=== PATIENT | female | born 1930 | race Caucasian/White ===

== ENCOUNTER 2017-11-04 08:02 | Inpatient (IN) ==
[2017-11-04] MEDS ORDERED: SODIUM CHLORIDE 0.9% 500 ML IV STA (08:37)
[2017-11-04 09:17] LABS: Basophils % 0.5 % (0.0-0.8); Eosinophils # 0.2 10*3/uL (0.0-0.87); Eosinophils % 2.7 % (0.00-10.9); Hematocrit 35.2 VOL% (35.7-47.0); Hemoglobin 11.2 GM/DL (12.0-16.0); Immature Granulocytes % 0.5 %; Immature Granulocytes Absolute 0.03 #; Lymphocytes # 0.8 10*3/uL (1.4-4.0); Lymphocytes % 13.7 % (21.3-54.2); Mean Corpuscular HGB Conc 31.8 GM/DL (32-36); Mean Corpuscular Hemoglobin 29 PG (27-34); Mean Platelet Volume 10.3 FL (9.6-12.0); Monocytes # 0.5 10*3/uL (0.11-0.8); Neutrophils # 4.3 10*3/uL (1.4-7.4); Neutrophils % 73.6 % (38.7-73.9); Platelet Count 120 T/CUMM (130-400); Red Blood Count 3.91 MC/CUMM (3.8-5.5); Red Cell Distribution Width 16.8 % (9.3-17.3); White Blood Count 5.9 T/CUMM (4-12)
[2017-11-04 09:26] LABS: INR 1.4; PT Patient Result 14.6 SECS; Partial Thromboplastin Time 28.7 SECS (0-40)
[2017-11-04 09:54] LABS: Albumin 2.9 G/DL (3.4-5.0); Bilirubin,Total 0.6 MG/DL (0.2-1.0); Calcium 8.8 MG/DL (8.5-10.1); Potassium 4.3 MMOL/L (3.5-5.1); Total Protein 6.8 G/DL (6.4-8.3)
[2017-11-04] MEDS ORDERED: GLUCAGON 1 MG VIAL IM PRN (10:26)
[2017-11-04] MEDS ORDERED: BISACODYL 5 MG TABLET PO PRN (10:26)
[2017-11-04] MEDS ORDERED: DOCUSATE SODIUM 100 MG CAPSULE PO PRN (10:26)
[2017-11-04] MEDS ORDERED: DEXTROSE 50% 25 GM/50 ML VIAL IV PRN (10:26)
[2017-11-04] MEDS ORDERED: ONDANSETRON 4 MG/2 ML VIAL IV PRN (10:26)
[2017-11-04] MEDS ORDERED: diphenhydrAMINE CAP 25 MG CAPSULE PO PRN (10:28)
[2017-11-04] MEDS ORDERED: TRIAMCINOLONE 0.1% CREAM 15 GM TUBE TOP PRN (10:28)
[2017-11-04] MEDS: SODIUM CHLORIDE 0.45% 1,000 ML IV SCH (12:17)
[2017-11-04] MEDS: INSULIN LISPRO 100 UNIT/ML SUBCUT SCH ×3 (12:17→20:59)
[2017-11-04] MEDS ORDERED: ASPARTAME PO SCH (15:00)
[2017-11-04] MEDS ORDERED: PSYLLIUM HUSK PO SCH (15:00)
[2017-11-04] MEDS: OMEGA 3 ACID ETHYL ESTERS 1 GM CAPSULE PO SCH (20:57)
[2017-11-04] MEDS: ISOSORBIDE MONONITRATE 60 MG TABLET PO SCH (20:57)
[2017-11-04] MEDS: ACETAMINOPHEN 325 MG TABLET PO PRN (20:57)
[2017-11-04] MEDS: CALCIUM (CARBONATE) 600 MG TABLET PO SCH (20:58)
[2017-11-04] MEDS: CARVEDILOL 3.125 MG TABLET PO SCH (20:58)
[2017-11-04] MEDS: GABAPENTIN 300 MG CAPSULE PO SCH (20:59)
[2017-11-04] MEDS: ATORVASTATIN 10 MG TABLET PO SCH (20:59)
[2017-11-04] MEDS: METHOCARBAMOL 500 MG TABLET PO SCH (20:59)
[2017-11-04] MEDS: ENOXAPARIN 30 MG/0.3 ML SYRINGE SUBCUT SCH (20:59)
[2017-11-04] MEDS: ERYTHROMYCIN 0.5% OPHT OINT 3.5 GM TUBE BOTH EYES SCH (21:00)
[2017-11-04 22:26] LABS: Apearance,Urine CLEAR (Clear); Bilirubin,Urine Negative (Negative); Blood, Urine Negative (Negative); Glucose,Urine (UA) Negative (Negative); Ketones,Urine Negative (Negative); Nitrite,Urine Negative (Negative); Protein,Urine Negative; Renal Epithelial Cells,Urine Occasional /HPF (<1); Squamous Epithelial Cell,Urine Occasional /HPF (0-10); Urine Color Yellow (Yellow); Urine Specific Gravity 1.012 (1.001-1.035); Urine Urobilinogen < 2.0 EU/DL (0.2-1.0); WBC,Urine 1 /HPF (0-6)
[2017-11-05] MEDS: SODIUM CHLORIDE 0.45% 1,000 ML IV SCH ×2 (00:13→23:39)
[2017-11-05 07:10] LABS: Calcium 8.5 MG/DL (8.5-10.1); Osmolality,Calculated 280.4 MOS/KG (273-304)
[2017-11-05] MEDS ORDERED: Bifidobacterium Infantis [Align] 4 MG PO SCH (09:00)
[2017-11-05] MEDS ORDERED: PYRIDOXINE HCL PO SCH (09:00)
[2017-11-05] MEDS ORDERED: LEVOFLOXACIN 750 MG TABLET PO SCH (09:00)
[2017-11-05] MEDS ORDERED: Biotin [Biotin] 10,000 MCG PO SCH (09:00)
[2017-11-05] MEDS: CARVEDILOL 3.125 MG TABLET PO SCH ×2 (10:04→21:47)
[2017-11-05] MEDS: OMEGA 3 ACID ETHYL ESTERS 1 GM CAPSULE PO SCH ×2 (10:04→21:48)
[2017-11-05] MEDS: CHOLECALCIFEROL 1,000 UNIT TABLET PO SCH (10:04)
[2017-11-05] MEDS: FUROSEMIDE 40 MG TABLET PO SCH (10:04)
[2017-11-05] MEDS: metFORMIN 500 MG TABLET PO SCH (10:05)
[2017-11-05] MEDS: FERROUS SULFATE 325 MG TABLET PO SCH (10:05)
[2017-11-05] MEDS: CALCIUM (CARBONATE) 600 MG TABLET PO SCH ×2 (10:05→21:47)
[2017-11-05] MEDS: POLYETHYLENE GLYCOL POWDER 17 GM PACK PO SCH (10:06)
[2017-11-05] MEDS: ASPIRIN CHEW 81 MG TABLET PO SCH (10:06)
[2017-11-05] MEDS: PANTOPRAZOLE 40 MG TABLET PO SCH (10:06)
[2017-11-05] MEDS: INSULIN LISPRO 100 UNIT/ML SUBCUT SCH ×4 (10:06→21:47)
[2017-11-05] MEDS: CYANOCOBALAMIN 500 MCG TABLET PO SCH (10:07)
[2017-11-05] MEDS ORDERED: SKIN HEALING OINT (AQUAPHOR) 50 GM TUBE TOP PRN (13:39)
[2017-11-05] MEDS ORDERED: TUBERCULIN SKIN TEST 0.1 ML SYRINGE INTRADERM ONE (13:48)
[2017-11-05] MEDS: ENOXAPARIN 30 MG/0.3 ML SYRINGE SUBCUT SCH (21:48)
[2017-11-05] MEDS: ISOSORBIDE MONONITRATE 60 MG TABLET PO SCH (21:48)
[2017-11-05] MEDS: ATORVASTATIN 10 MG TABLET PO SCH (21:48)
[2017-11-05] MEDS: ERYTHROMYCIN 0.5% OPHT OINT 3.5 GM TUBE BOTH EYES SCH (21:48)
[2017-11-05] MEDS: METHOCARBAMOL 500 MG TABLET PO SCH (21:50)
[2017-11-05] MEDS: GABAPENTIN 300 MG CAPSULE PO SCH (21:50)
[2017-11-06] MEDS: SODIUM CHLORIDE 0.45% 1,000 ML IV SCH ×2 (04:39→22:51)
[2017-11-06] MEDS: INSULIN LISPRO 100 UNIT/ML SUBCUT SCH ×4 (08:12→22:47)
[2017-11-06] MEDS: metFORMIN 500 MG TABLET PO SCH (09:34)
[2017-11-06] MEDS: CYANOCOBALAMIN 500 MCG TABLET PO SCH (09:34)
[2017-11-06] MEDS: CHOLECALCIFEROL 1,000 UNIT TABLET PO SCH (09:34)
[2017-11-06] MEDS: FERROUS SULFATE 325 MG TABLET PO SCH (09:34)
[2017-11-06] MEDS: OMEGA 3 ACID ETHYL ESTERS 1 GM CAPSULE PO SCH ×2 (09:34→22:48)
[2017-11-06] MEDS: CARVEDILOL 3.125 MG TABLET PO SCH ×2 (09:34→22:47)
[2017-11-06] MEDS: POLYETHYLENE GLYCOL POWDER 17 GM PACK PO SCH (09:34)
[2017-11-06] MEDS: ASPIRIN CHEW 81 MG TABLET PO SCH (09:35)
[2017-11-06] MEDS: CALCIUM (CARBONATE) 600 MG TABLET PO SCH ×2 (09:35→22:47)
[2017-11-06] MEDS: PANTOPRAZOLE 40 MG TABLET PO SCH (09:41)
[2017-11-06] MEDS: FUROSEMIDE 40 MG TABLET PO SCH (09:41)
[2017-11-06] MEDS: ERYTHROMYCIN 0.5% OPHT OINT 3.5 GM TUBE BOTH EYES SCH (22:47)
[2017-11-06] MEDS: ISOSORBIDE MONONITRATE 60 MG TABLET PO SCH (22:48)
[2017-11-06] MEDS: METHOCARBAMOL 500 MG TABLET PO SCH (22:48)
[2017-11-06] MEDS: GABAPENTIN 300 MG CAPSULE PO SCH (22:48)
[2017-11-06] MEDS: ATORVASTATIN 10 MG TABLET PO SCH (22:48)
[2017-11-06] MEDS: ENOXAPARIN 30 MG/0.3 ML SYRINGE SUBCUT SCH (22:48)
[2017-11-06] MEDS: ACETAMINOPHEN 325 MG TABLET PO PRN (22:49)
[2017-11-07] MEDS: SODIUM CHLORIDE 0.45% 1,000 ML IV SCH (07:22)
[2017-11-07 07:24] VITALS: BP 140/62
[2017-11-07] MEDS: INSULIN LISPRO 100 UNIT/ML SUBCUT SCH (08:57)
[2017-11-07] MEDS: FERROUS SULFATE 325 MG TABLET PO SCH (08:57)
[2017-11-07] MEDS: OMEGA 3 ACID ETHYL ESTERS 1 GM CAPSULE PO SCH (08:57)
[2017-11-07] MEDS: PANTOPRAZOLE 40 MG TABLET PO SCH (08:57)
[2017-11-07] MEDS: CALCIUM (CARBONATE) 600 MG TABLET PO SCH (08:57)
[2017-11-07] MEDS: CHOLECALCIFEROL 1,000 UNIT TABLET PO SCH (08:57)
[2017-11-07] MEDS: CYANOCOBALAMIN 500 MCG TABLET PO SCH (08:57)
[2017-11-07] MEDS: ASPIRIN CHEW 81 MG TABLET PO SCH (08:57)
[2017-11-07] MEDS: FUROSEMIDE 40 MG TABLET PO SCH (08:57)
[2017-11-07] MEDS: metFORMIN 500 MG TABLET PO SCH (08:57)
[2017-11-07] MEDS: CARVEDILOL 3.125 MG TABLET PO SCH (08:57)
[2017-11-07] MEDS: POLYETHYLENE GLYCOL POWDER 17 GM PACK PO SCH (08:58)
== END 2017-11-07 12:06 | DRG 565 ==
LOC: N.EDINP 08:02 → N.ED 08:02 → N.2W 11:18 → N.5E 13:07
PROVIDERS: ADMIT Internal Medicine; ATTEND Internal Medicine

== ENCOUNTER 2018-02-08 14:24 | Inpatient (IN) ==
[2018-02-08 15:09] LABS: Basophils % 0.3 % (0.0-0.8); Eosinophils # 0.1 10*3/uL (0.0-0.87); Eosinophils % 0.8 % (0.00-10.9); Hematocrit 38.1 VOL% (35.7-47.0); Hemoglobin 11.5 GM/DL (12.0-16.0); Immature Granulocytes % 0.4 %; Immature Granulocytes Absolute 0.03 #; Lymphocytes # 0.9 10*3/uL (1.4-4.0); Lymphocytes % 12.2 % (21.3-54.2); Mean Corpuscular HGB Conc 30.2 GM/DL (32-36); Mean Corpuscular Hemoglobin 28 PG (27-34); Mean Corpuscular Volume 93.6 FL (87-102); Monocytes # 0.7 10*3/uL (0.11-0.8); Monocytes % 9.5 % (1.7-12.7); NRBC # 0.03 10*3/uL; Neutrophils # 5.6 10*3/uL (1.4-7.4); Neutrophils % 76.8 % (38.7-73.9); Platelet Count 106 T/CUMM (130-400); Red Blood Count 4.07 MC/CUMM (3.8-5.5); Red Cell Distribution Width 19.9 % (9.3-17.3); White Blood Count 7.2 T/CUMM (4-12)
[2018-02-08 15:26] LABS: Albumin 2.7 G/DL (3.4-5.0); Bilirubin,Total 1.1 MG/DL (0.2-1.0); Calcium 8.5 MG/DL (8.5-10.1); Osmolality,Calculated 294.1 MOS/KG (273-304); Total Protein 7.7 G/DL (6.4-8.3)
[2018-02-08] MEDS ORDERED: ALBUTEROL/IPRATROPIUM 3 ML NEB RESP TX STA (16:28)
[2018-02-08 16:37] LABS: Apearance,Urine CLOUDY (Clear); Bilirubin,Urine Negative (Negative); Blood, Urine Negative (Negative); Glucose,Urine (UA) Negative (Negative); Ketones,Urine Negative (Negative); Mucus,Urine Occasional /LPF (Occasional); Nitrite,Urine Negative (Negative); Protein,Urine 30 MG/DL; RBC,Urine 5 /HPF (0-4); Urine Specific Gravity 1.021 (1.001-1.035); WBC,Urine 15 /HPF (0-6)
[2018-02-08 16:38] LABS: Urine Color Dark yellow (Yellow)
[2018-02-08] MEDS ORDERED: cefTRIAXone 1,000 MG in SODIUM CHLORIDE 0.9% 100 ML IV STA (17:11)
[2018-02-08] MEDS ORDERED: CALCIUM GLUCONATE 1,000 MG in SODIUM CHLORIDE 0.9% 100 ML IV ONE (17:11)
[2018-02-08] MEDS ORDERED: CALCIUM GLUCONATE 1,000 MG/10 ML VIAL IV ONE (17:17)
[2018-02-08] MEDS ORDERED: INSULIN REGULAR 100 UNIT/ML IV STA (17:22)
[2018-02-08] MEDS ORDERED: INSULIN REGULAR 100 UNIT/ML ONE (17:22)
[2018-02-08] MEDS ORDERED: SODIUM CHLORIDE 0.9% 500 ML IV ONE (19:08)
[2018-02-08] MEDS ORDERED: SODIUM POLYSTYRENE SULFATE 15 GM/60 ML BOTTLE PO ONE (22:07)
[2018-02-08] MEDS ORDERED: DEXTROSE 50% 25 GM/50 ML VIAL IV PRN (22:07)
[2018-02-08] MEDS ORDERED: hydrOXYzine HCL 25 MG TABLET PO PRN (22:07)
[2018-02-08] MEDS ORDERED: DOCUSATE SODIUM 100 MG CAPSULE PO PRN (22:07)
[2018-02-08] MEDS ORDERED: ASPARTAME PO SCH (22:07)
[2018-02-08] MEDS ORDERED: GLUCAGON 1 MG VIAL IM PRN (22:07)
[2018-02-08] MEDS ORDERED: [UNRECOGNIZED DRUG - OTHER] PO SCH (22:07)
[2018-02-08] MEDS ORDERED: LACTULOSE 20 GM/30 ML UDCUP PO PRN (22:07)
[2018-02-08 22:35] LABS: PT Patient Result 21.5 SECS
[2018-02-08] MEDS: FUROSEMIDE 20 MG/2 ML VIAL IV SCH (22:42)
[2018-02-08] MEDS: INSULIN REGULAR 100 UNIT/ML SUBCUT SCH (22:42)
[2018-02-08] MEDS: GABAPENTIN 300 MG CAPSULE PO SCH (22:43)
[2018-02-08] MEDS: RANOLAZINE 500 MG TABLET PO SCH (22:43)
[2018-02-08] MEDS: OMEGA 3 ACID ETHYL ESTERS 1 GM CAPSULE PO SCH (22:43)
[2018-02-08] MEDS: MIRTAZAPINE 15 MG TABLET PO SCH (22:43)
[2018-02-08] MEDS: CARVEDILOL 3.125 MG TABLET PO SCH (22:43)
[2018-02-08 22:44] LABS: ABG Base Excess -5.4 MMOL/L (-2.5-2.5); ABG Oxygen Saturation 99.7 % (95-100); ABG PCO2 30.9 MM HG (35-48); ABG PH 7.387 (7.35-7.45); ABG TCO2 16.5 MMOL/L (23-27); Allen Test Positive
[2018-02-08 22:51] LABS: Troponin I < 0.015 NG/ML (0.00-0.045)
[2018-02-08 23:35] LABS: Hepatitis A Ab IgM Quant 0.09 Index; Hepatitis A Ab IgM Result Negative (Negative); Hepatitis B Core IgM Quant < 0.05 Index; Hepatitis B Core IgM Result Negative (Negative); Hepatitis B Surface Ag Quant < 0.10 Index; Hepatitis B Surface Ag Result Negative (Negative); Hepatitis C Virus Ab Quant 0.05 Index; Hepatitis C Virus Ab Result Negative (Negative)
[2018-02-09] MEDS: ERYTHROMYCIN 0.5% OPHT OINT 3.5 GM TUBE BOTH EYES SCH ×2 (01:33→21:26)
[2018-02-09 05:16] LABS: Basophils % 0.5 % (0.0-0.8); Eosinophils # 0.3 10*3/uL (0.0-0.87); Hematocrit 36.4 VOL% (35.7-47.0); Hemoglobin 11.2 GM/DL (12.0-16.0); Immature Granulocytes % 0.5 %; Immature Granulocytes Absolute 0.03 #; Lymphocytes # 0.9 10*3/uL (1.4-4.0); Lymphocytes % 14.1 % (21.3-54.2); Mean Corpuscular HGB Conc 30.8 GM/DL (32-36); Mean Corpuscular Hemoglobin 28 PG (27-34); Mean Corpuscular Volume 90.8 FL (87-102); Mean Platelet Volume 12.2 FL (9.6-12.0); Monocytes # 0.8 10*3/uL (0.11-0.8); Monocytes % 13.1 % (1.7-12.7); NRBC # 0.02 10*3/uL; Neutrophils # 4.3 10*3/uL (1.4-7.4); Neutrophils % 67.8 % (38.7-73.9); Red Blood Count 4.01 MC/CUMM (3.8-5.5); Red Cell Distribution Width 19.9 % (9.3-17.3); White Blood Count 6.3 T/CUMM (4-12)
[2018-02-09 05:21] LABS: Platelet Count 91 T/CUMM (130-400)
[2018-02-09 05:29] LABS: Alanine Aminotransferase 322 U/L (13-56); Albumin 2.5 G/DL (3.4-5.0); Alkaline Phosphatase 83 U/L (45-117); Aspartate Amino Transferase 545 U/L (0-37); Blood Urea Nitrogen 66 MG/DL (7-18); Calcium 8.4 MG/DL (8.5-10.1); Cholesterol 62 MG/DL (50-200); Glucose 160 MG/DL (74-106); HDL Cholesterol 28 MG/DL (40-60); Osmolality,Calculated 294.8 MOS/KG (273-304); Potassium 5.5 MMOL/L (3.5-5.1); Risk Ratio 2.21; Sodium 137 MMOL/L (136-145); Triglycerides 75 MG/DL (2-150); Troponin I < 0.015 NG/ML (0.00-0.045)
[2018-02-09 05:40] LABS: Hypochromasia 1+; Platelet Estimate Decreased
[2018-02-09] MEDS ORDERED: MAGNESIUM SULF RIDER 1 GM in PREMIX 1 EACH IV ONE (05:41)
[2018-02-09] MEDS ORDERED: SODIUM POLYSTYRENE SULFATE 15 GM/60 ML BOTTLE PO ONE (05:43)
[2018-02-09] MEDS ORDERED: CORAL CALCIUM PO SCH (08:00)
[2018-02-09] MEDS ORDERED: NON-FORMULARY MEDICATION (Biotin [Biotin] 10,000 MCG) PO SCH (09:00)
[2018-02-09] MEDS ORDERED: NON-FORMULARY MEDICATION (Bifidobacterium Infantis [Align] 4 MG) PO SCH (09:00)
[2018-02-09] MEDS: CARVEDILOL 3.125 MG TABLET PO SCH ×2 (09:12→21:26)
[2018-02-09] MEDS: PANTOPRAZOLE 40 MG TABLET PO SCH (09:12)
[2018-02-09] MEDS: ASPIRIN CHEW 81 MG TABLET PO SCH (09:12)
[2018-02-09] MEDS: CYANOCOBALAMIN 500 MCG TABLET PO SCH (09:12)
[2018-02-09] MEDS: CHOLECALCIFEROL 1,000 UNIT TABLET PO SCH (09:12)
[2018-02-09] MEDS: RANOLAZINE 500 MG TABLET PO SCH ×2 (09:12→21:26)
[2018-02-09] MEDS: OMEGA 3 ACID ETHYL ESTERS 1 GM CAPSULE PO SCH ×2 (09:13→21:26)
[2018-02-09] MEDS: FUROSEMIDE 20 MG/2 ML VIAL IV SCH ×2 (09:14→17:04)
[2018-02-09] MEDS: ENOXAPARIN 30 MG/0.3 ML SYRINGE SUBCUT SCH (09:15)
[2018-02-09] MEDS: POLYETHYLENE GLYCOL POWDER 17 GM PACK PO SCH (09:17)
[2018-02-09] MEDS: PYRIDOXINE 100 MG TABLET PO SCH (09:17)
[2018-02-09] MEDS: INSULIN REGULAR 100 UNIT/ML SUBCUT SCH ×4 (09:17→22:25)
[2018-02-09] MEDS ORDERED: TUBERCULIN SKIN TEST 0.1 ML SYRINGE INTRADERM ONE (15:55)
[2018-02-09] MEDS: ZINC OXIDE PASTE 113 GM TUBE TOP SCH ×2 (17:04→21:27)
[2018-02-09] MEDS: cefTRIAXone 1,000 MG in SYRINGE 1 EACH IV SCH (17:04)
[2018-02-09] MEDS: GABAPENTIN 300 MG CAPSULE PO SCH (21:26)
[2018-02-09] MEDS: MIRTAZAPINE 15 MG TABLET PO SCH (21:26)
[2018-02-09 21:47] LABS: Calcium 7.7 MG/DL (8.5-10.1); Osmolality,Calculated 295.7 MOS/KG (273-304); Potassium 3.2 MMOL/L (3.5-5.1)
[2018-02-10 05:36] LABS: Basophils % 0.3 % (0.0-0.8); Eosinophils # 0.4 10*3/uL (0.0-0.87); Eosinophils % 4.6 % (0.00-10.9); Hematocrit 34.9 VOL% (35.7-47.0); Immature Granulocytes % 0.6 %; Immature Granulocytes Absolute 0.05 #; Lymphocytes # 0.7 10*3/uL (1.4-4.0); Mean Corpuscular HGB Conc 31.5 GM/DL (32-36); Mean Corpuscular Hemoglobin 28 PG (27-34); Mean Corpuscular Volume 88.8 FL (87-102); Mean Platelet Volume 11.3 FL (9.6-12.0); Monocytes # 0.9 10*3/uL (0.11-0.8); Monocytes % 11.3 % (1.7-12.7); NRBC # 0.02 10*3/uL; Neutrophils # 5.9 10*3/uL (1.4-7.4); Neutrophils % 74.2 % (38.7-73.9); Red Blood Count 3.93 MC/CUMM (3.8-5.5); Red Cell Distribution Width 19.5 % (9.3-17.3)
[2018-02-10 05:46] LABS: Platelet Count 82 T/CUMM (130-400)
[2018-02-10 05:57] LABS: Calcium 7.9 MG/DL (8.5-10.1); Osmolality,Calculated 297.4 MOS/KG (273-304); Potassium 2.9 MMOL/L (3.5-5.1)
[2018-02-10 06:31] LABS: Platelet Estimate Decreased
[2018-02-10 06:32] LABS: Hypochromasia 1+; Polychromasia Few
[2018-02-10] MEDS ORDERED: MAGNESIUM SULF RIDER 4 GM in PREMIX 1 EACH IV PRN (07:41)
[2018-02-10] MEDS: ENOXAPARIN 30 MG/0.3 ML SYRINGE SUBCUT SCH (09:20)
[2018-02-10] MEDS: FUROSEMIDE 20 MG/2 ML VIAL IV SCH ×2 (09:20→16:25)
[2018-02-10] MEDS: OMEGA 3 ACID ETHYL ESTERS 1 GM CAPSULE PO SCH ×2 (09:20→21:23)
[2018-02-10] MEDS: POLYETHYLENE GLYCOL POWDER 17 GM PACK PO SCH (09:20)
[2018-02-10] MEDS: RANOLAZINE 500 MG TABLET PO SCH ×2 (09:20→21:23)
[2018-02-10] MEDS: CHOLECALCIFEROL 1,000 UNIT TABLET PO SCH (09:20)
[2018-02-10] MEDS: PANTOPRAZOLE 40 MG TABLET PO SCH (09:21)
[2018-02-10] MEDS: CARVEDILOL 3.125 MG TABLET PO SCH ×2 (09:21→21:24)
[2018-02-10] MEDS: ASPIRIN CHEW 81 MG TABLET PO SCH (09:21)
[2018-02-10] MEDS: INSULIN REGULAR 100 UNIT/ML SUBCUT SCH ×4 (09:21→21:24)
[2018-02-10] MEDS: CYANOCOBALAMIN 500 MCG TABLET PO SCH (09:21)
[2018-02-10] MEDS: ZINC OXIDE PASTE 113 GM TUBE TOP SCH ×2 (09:21→21:50)
[2018-02-10] MEDS: MAGNESIUM SULF RIDER 2 GM in PREMIX 1 EACH IV PRN (09:22)
[2018-02-10] MEDS: PYRIDOXINE 100 MG TABLET PO SCH (12:06)
[2018-02-10] MEDS: POTASSIUM CHLORIDE RIDER 10 MEQ in PREMIX 1 EACH IV PRN ×4 (12:06→21:30)
[2018-02-10] MEDS: cefTRIAXone 1,000 MG in SYRINGE 1 EACH IV SCH ×2 (16:25→17:30)
[2018-02-10] MEDS: SKIN HEALING OINT (AQUAPHOR) 50 GM TUBE TOP SCH (17:17)
[2018-02-10] MEDS ORDERED: ALBUTEROL/IPRATROPIUM 3 ML NEB RESP TX PRN (19:05)
[2018-02-10] MEDS: GABAPENTIN 300 MG CAPSULE PO SCH (21:23)
[2018-02-10] MEDS: MIRTAZAPINE 15 MG TABLET PO SCH (21:24)
[2018-02-10] MEDS: ERYTHROMYCIN 0.5% OPHT OINT 3.5 GM TUBE BOTH EYES SCH (21:50)
[2018-02-11] MEDS: POTASSIUM CHLORIDE RIDER 10 MEQ in PREMIX 1 EACH IV PRN (00:12)
[2018-02-11 05:46] LABS: Basophils % 0.2 % (0.0-0.8); Eosinophils % 0.3 % (0.00-10.9); Hematocrit 36.8 VOL% (35.7-47.0); Hemoglobin 11.6 GM/DL (12.0-16.0); Immature Granulocytes % 0.5 %; Immature Granulocytes Absolute 0.06 #; Lymphocytes # 0.7 10*3/uL (1.4-4.0); Lymphocytes % 6.1 % (21.3-54.2); Mean Corpuscular HGB Conc 31.5 GM/DL (32-36); Mean Corpuscular Hemoglobin 28 PG (27-34); Mean Corpuscular Volume 88.9 FL (87-102); Mean Platelet Volume 12.2 FL (9.6-12.0); Monocytes % 9.2 % (1.7-12.7); NRBC # 0.03 10*3/uL; Neutrophils # 9.2 10*3/uL (1.4-7.4); Neutrophils % 83.7 % (38.7-73.9); Red Blood Count 4.14 MC/CUMM (3.8-5.5); Red Cell Distribution Width 19.9 % (9.3-17.3)
[2018-02-11 05:49] LABS: Platelet Count 82 T/CUMM (130-400)
[2018-02-11 05:51] LABS: Albumin 2.4 G/DL (3.4-5.0); Bilirubin,Direct 0.54 MG/DL (0.0-0.20); Bilirubin,Indirect 0.5 MG/DL (0.0-1.0); Total Protein 6.7 G/DL (6.4-8.3)
[2018-02-11 06:00] LABS: Calcium 7.4 MG/DL (8.5-10.1); Osmolality,Calculated 294.5 MOS/KG (273-304); Potassium 3.6 MMOL/L (3.5-5.1)
[2018-02-11 06:05] LABS: Hypochromasia 1+; Ovalocytes Slight; Platelet Estimate Decreased
[2018-02-11] MEDS: INSULIN REGULAR 100 UNIT/ML SUBCUT SCH ×4 (09:11→21:40)
[2018-02-11] MEDS: ZINC OXIDE PASTE 113 GM TUBE TOP SCH ×2 (09:12→21:14)
[2018-02-11] MEDS: OMEGA 3 ACID ETHYL ESTERS 1 GM CAPSULE PO SCH ×2 (09:12→21:13)
[2018-02-11] MEDS: POLYETHYLENE GLYCOL POWDER 17 GM PACK PO SCH ×2 (09:12→09:15)
[2018-02-11] MEDS: CYANOCOBALAMIN 500 MCG TABLET PO SCH (09:12)
[2018-02-11] MEDS: PYRIDOXINE 100 MG TABLET PO SCH (09:12)
[2018-02-11] MEDS: SKIN HEALING OINT (AQUAPHOR) 50 GM TUBE TOP SCH (09:12)
[2018-02-11] MEDS: ENOXAPARIN 30 MG/0.3 ML SYRINGE SUBCUT SCH (09:13)
[2018-02-11] MEDS: PANTOPRAZOLE 40 MG TABLET PO SCH (09:13)
[2018-02-11] MEDS: FUROSEMIDE 20 MG/2 ML VIAL IV SCH ×2 (09:13→16:43)
[2018-02-11] MEDS: CHOLECALCIFEROL 1,000 UNIT TABLET PO SCH (09:13)
[2018-02-11] MEDS: CARVEDILOL 3.125 MG TABLET PO SCH ×2 (09:13→21:13)
[2018-02-11] MEDS: RANOLAZINE 500 MG TABLET PO SCH ×2 (09:13→21:14)
[2018-02-11] MEDS: ASPIRIN CHEW 81 MG TABLET PO SCH (09:13)
[2018-02-11] MEDS ORDERED: ONDANSETRON 4 MG/2 ML VIAL IV PRN (12:19)
[2018-02-11] MEDS ORDERED: MAGNESIUM SULF RIDER 2 GM in PREMIX 1 EACH IV PRN (15:51)
[2018-02-11] MEDS ORDERED: MAGNESIUM SULF RIDER 4 GM in PREMIX 1 EACH IV PRN (15:51)
[2018-02-11] MEDS: MAGNESIUM SULF RIDER 2 GM in PREMIX 1 EACH IV PRN (16:02)
[2018-02-11] MEDS: cefTRIAXone 1,000 MG in SYRINGE 1 EACH IV SCH (16:44)
[2018-02-11] MEDS: GABAPENTIN 300 MG CAPSULE PO SCH (21:14)
[2018-02-11] MEDS: MIRTAZAPINE 15 MG TABLET PO SCH (21:14)
[2018-02-11] MEDS: ERYTHROMYCIN 0.5% OPHT OINT 3.5 GM TUBE BOTH EYES SCH (21:14)
[2018-02-12 05:27] LABS: Basophils % 0.3 % (0.0-0.8); Eosinophils # 0.2 10*3/uL (0.0-0.87); Eosinophils % 2.5 % (0.00-10.9); Hematocrit 38.1 VOL% (35.7-47.0); Hemoglobin 11.8 GM/DL (12.0-16.0); Immature Granulocytes % 0.5 %; Immature Granulocytes Absolute 0.03 #; Lymphocytes # 1.2 10*3/uL (1.4-4.0); Lymphocytes % 19.2 % (21.3-54.2); Mean Corpuscular Hemoglobin 28 PG (27-34); Mean Corpuscular Volume 89.4 FL (87-102); Mean Platelet Volume 11.4 FL (9.6-12.0); Monocytes # 0.7 10*3/uL (0.11-0.8); Monocytes % 11.2 % (1.7-12.7); NRBC # 0.03 10*3/uL; Neutrophils % 66.3 % (38.7-73.9); Red Blood Count 4.26 MC/CUMM (3.8-5.5); Red Cell Distribution Width 19.9 % (9.3-17.3); White Blood Count 6.1 T/CUMM (4-12)
[2018-02-12 05:31] LABS: Platelet Count 78 T/CUMM (130-400)
[2018-02-12 05:45] LABS: Hypochromasia 1+; Ovalocytes Slight; Platelet Estimate Decreased
[2018-02-12 05:50] LABS: Calcium 7.8 MG/DL (8.5-10.1); Osmolality,Calculated 291.4 MOS/KG (273-304); Potassium 3.4 MMOL/L (3.5-5.1)
[2018-02-12] MEDS: INSULIN REGULAR 100 UNIT/ML SUBCUT SCH ×2 (09:30→13:02)
[2018-02-12] MEDS: POLYETHYLENE GLYCOL POWDER 17 GM PACK PO SCH (10:17)
[2018-02-12] MEDS: FUROSEMIDE 20 MG/2 ML VIAL IV SCH (10:17)
[2018-02-12] MEDS: CHOLECALCIFEROL 1,000 UNIT TABLET PO SCH (10:18)
[2018-02-12] MEDS: ENOXAPARIN 30 MG/0.3 ML SYRINGE SUBCUT SCH (10:18)
[2018-02-12] MEDS: ASPIRIN CHEW 81 MG TABLET PO SCH (10:20)
[2018-02-12] MEDS: OMEGA 3 ACID ETHYL ESTERS 1 GM CAPSULE PO SCH (10:20)
[2018-02-12] MEDS: CARVEDILOL 3.125 MG TABLET PO SCH (10:20)
[2018-02-12] MEDS: PANTOPRAZOLE 40 MG TABLET PO SCH (10:20)
[2018-02-12] MEDS: RANOLAZINE 500 MG TABLET PO SCH (10:20)
[2018-02-12] MEDS: CYANOCOBALAMIN 500 MCG TABLET PO SCH (10:20)
[2018-02-12] MEDS: SKIN HEALING OINT (AQUAPHOR) 50 GM TUBE TOP SCH (10:21)
[2018-02-12] MEDS: ZINC OXIDE PASTE 113 GM TUBE TOP SCH (10:21)
[2018-02-12] MEDS: PYRIDOXINE 100 MG TABLET PO SCH (10:51)
[2018-02-12 12:45] VITALS: BP 161/67
[2018-02-13] MEDS ORDERED: PYRIDOXINE 100 MG TABLET PO SCH (09:00)
== END 2018-02-12 12:07 | disposition swing bed (61) | DRG 291 ==
LOC: N.ED 14:24 → N.EDINP 18:56 → N.5E 19:18
PROVIDERS: ADMIT Internal Medicine; ATTEND Internal Medicine